=== PATIENT | male | born 1975 | race Two or more races ===

== ENCOUNTER 2017-09-26 22:31 | Emergency (ER) | payer BC, OTHER ==
[~2017-09-26] VITALS: Ht 195.6 cm; Wt 102.1 kg
[2017-09-26 22:49] VITALS: BP 134/86
[2017-09-27] MEDS ORDERED: HYDROCODONE/APAP 10/325MG 1 EA TABLET PO ONE
[2017-09-27] MEDS ORDERED: HYDROCODONE/APAP 10/325MG 1 EA TABLET ONE (00:33)
== END 2017-09-27 01:35 | disposition home or self-care (01) ==
LOC: ER 22:39
DX: S82.51XA Displaced fracture of medial malleolus of right tibia, initial encounter for closed fracture (principal); W01.0XXA Fall on same level from slipping, tripping and stumbling without subsequent striking against object, initial encounter; Y93.89 Activity, other specified; Y92.89 Other specified places as the place of occurrence of the external cause; Y99.8 Other external cause status
CPT/HCPCS: 29515; 73610; 99284; A4606; Z7610